=== PATIENT | male | born 1955 | race Caucasian/White ===

== ENCOUNTER 2024-10-25 17:52 | Emergency (ER) | payer MEDICARE, SELFPAY ==
[2024-10-25] VITALS (9 sets, daily range): BP systolic 109–151; BP diastolic 51–73; PULSE 82–105; RESP 16–24; TEMP 36.6–36.8; O2SAT 92–98; BMI 31.8
--- NOTE | 2024-10-25 17:50 | ECG_ITS ---
APPROVED REPORT Exam: Resting ECG HR:102 bpm ECG Measurements Heart Rate 102 AXES SC 180 P 66 QRSd 86 QRS 24 QT 291 T 47 QTc 350 Conclusion SINUS TACHYCARDIA NONSPECIFIC ST & T-WAVE ABNORMALITY ABNORMAL RHYTHM ECG Electronically signed by : ANABELLE SHEPARD, 10/25/2024 20:51:04
--- NOTE | 2024-10-25 18:17 | XR_ITS ---
PROCEDURE INFORMATION: Exam: XR Chest Exam date and time: 10/25/2024 7:52 PM Age: 68 years old Clinical indication: Pain; Chest pressure; Additional info: Chest pain TECHNIQUE: Imaging protocol: Radiologic exam of the chest. Views: 1 view. COMPARISON: CT ABDOMEN PELVIS W CON 10/25/2024 7:48 PM FINDINGS: Lungs: Minimal bibasilar subsegmental atelectasis. No consolidation. Pleural spaces: Unremarkable. No pleural effusion. No pneumothorax. Heart/Mediastinum: Unremarkable. No cardiomegaly. Bones/joints: Unremarkable. IMPRESSION: Basilar subsegmental atelectasis.
[2024-10-25 18:24] LABS: Albumin Level 4.8 g/dl (3.5-5.0); Chloride 100 mmol/L (98-107); Sodium 136 mmol/L (136-145)
[2024-10-25 18:25] LABS: Basophils % 0.6 % (0.1-2.0); Eosinophils % 0.6 % (0.1-12.0); Hematocrit 46.4 % (42.0-52.0); Hemoglobin 15.3 g/dL (14.1-18.0); Immature Granulocytes # 0.02 10^3uL; Immature Granulocytes % 0.4 %; Lymphocytes # 0.4 K/mm3 (0.7-4.5); Lymphocytes % 8.4 % (10-50); Mean Corpuscular Volume 93.9 fl (80-94); Monocytes # 0.1 K/mm3 (0.1-1.0); Neutrophils # 4.7 K/mm3 (1.8-7.8); Nucleated Red Blood Cells # 0 10^3/uL; Nucleated Red Blood Cells % 0 %; Platelet Count 155 K/mm3 (142-424); Potassium 3.8 mmoL/L (3.5-5.1); Red Blood Count 4.94 M/mm3 (4.60-6.20); Red Cell Distribution Width 13.2 % (11.5-17.5); Red Cell Distribution Width-SD 45.6 fL; White Blood Count 5.2 K/mm3 (4.8-10.8)
[2024-10-25 18:26] LABS: MANUAL DIFFERENTIAL MANUAL DIFFERENTIAL (MANUAL DIFF)
[2024-10-25 18:27] LABS: Alanine Aminotransferase 74 U/L (12-78); Albumin/Globulin Ratio 1.8 (1.1-1.8); Alkaline Phosphatase 101 U/L (38-126); Anion Gap 11.8 mEq/L (5-15); Aspartate Amino Transferase 183 U/L (17-59); Bilirubin,Total 1.3 mg/dl (0.2-1.3); Blood Urea Nitrogen 17 mg/dl (9-20); Carbon Dioxide 28 mmol/L (22.0-30.0); Creatinine Clearance Estimated 107 mL/min (50-200); Estimated Glomerular Filt Rate 74 ml/min (>60); GFR (African American) 90 ML/MIN (>60); Globulin 2.7 g/dL (1.3-3.2); Total Protein,Serum 7.5 g/dl (6.3-8.2)
[2024-10-25 18:28] LABS: Calcium 9.3 mg/dl (8.4-10.2); Glucose 141 mg/dl (74-100)
--- NOTE | 2024-10-25 18:32 | ED_ITS ---
<Statement entered by Raffy Chavez MD - 10/25/24 23:16> I was consulted by the JOCE, and we discussed the complexity of the problems being addressed. I approved the treatment and management plan for this patient's care in the emergency department, thus performing a substantive portion of the medical decision making. Raffy Chavez MD Discharge Plan Disposition Patient Disposition: Home, Self-Care Condition: Good Referrals Follow up/Referrals: Ceferino Mohan MD [Staff Physician] - See instructions (Cholelithiasis with biliary colic) Activity Restrictions/Add. Instructions Additional Instructions/Restrictions: I have referred you to a general surgeon. Please call in the morning to make your appointment. If you have any persistent new or worsening signs or symptoms follow-up with your PCP return to the ER as needed. Clinical Impressions Clinical Impression: Cholelithiasis Qualifiers: Cholelithiasis location: gallbladder Cholecystitis presence: without cholecystitis Biliary obstruction: without biliary obstruction Qualified Code(s): K80.20 - Calculus of gallbladder without cholecystitis without obstruction Print Language Print Language: British Discharge ED Provider: Raffy Chavez [facility] <PETE French - Last Filed: 10/25/24 20:24> General Chief Complaint: Chest Pain Stated Complaint: CP Time Seen by Provider: 10/25/24 18:32 Mode of Arrival: Ambulatory Description of Symptoms (Recalled from ER Triage Doc. by RN): pt to the ED with midsternal chest pain since noon. that feels like something is sitting on his chest History of Present Illness HPI narrative: Patient presents for evaluation of epigastric pain. Patient reports that he has had epigastric pain located in the upper right quadrant and epigastrium since lunch today. Patient denies any fever chills shortness of breath hemoptysis hematochezia melena nausea vomiting diarrhea. It does not radiate. Patient states that he has had this before but never this long when he was diagnosed with gallstones . He was referred for cholecystectomy but did not go because I am a chicken . Related Data Allergies Allergy/AdvReac Type Severity Reaction Status Date / Time No Known Allergies Allergy Verified 10/25/24 18:11 PFS <PETE French - Last Filed: 10/25/24 20:24> [facility] Disclaimer: The information contained in this section may have been updated after the patient was seen, as this information can be updated by other users. Social History Smoking Status: Never smoker alcohol intake: never current occupational status: employed Travel in the last 8 weeks?: None <PETE French - Last Filed: 10/25/24 20:24> ROS Obtained: Yes Systems reviewed as appropriate & no additional complaints except as documented Physical Exam <PETE French - Last Filed: 10/25/24 20:24> General General appearance: alert and in no apparent distress Respiratory Respiratory exam: Present normal lung sounds bilaterally Cardiovascular Cardiovascular exam: Present regular rate Neurological Exam Neurological exam: Present alert and oriented X3 HEART Score <PETE French - Last Filed: 10/25/24 20:24> HEART Score HEART Score assessment performed?: Yes History (anamnesis): Slightly suspicious ECG: Non-specific disturbance Age: >65 years Risk factors: 3 or more risk factors Troponin: </= normal limit HEART Score: 5 Critical Care <PETE French Last Filed: 10/25/24 20:24> Critical Care Time Critical Care Time: No Medical Decision Making <PETE French - Last Filed: 10/25/24 20:24> Medical Records Medical records reviewed: Yes I reviewed the patient's medical records. Hans Inquiry Pt receiving controlled substance: No Vital Signs Vital Signs: 10/25/24 17:54 10/25/24 18:30 Temperature 98.3 F Temperature Source Oral Pulse Rate 98 H Pulse Rate [Left Radial] 82 Respiratory Rate 17 22 Blood Pressure 134/73 Blood Pressure [Right Arm] 151/65 H Blood Pressure Mean [Right Arm] 93 Blood Pressure Source [Right Arm] Automatic Cuff Blood Pressure Position [Right Arm] Sitting 02 Sat by Pulse Oximetry 98 93 L Oxygen Delivery Method Room Air Lab Data Lab results reviewed: Yes I reviewed the patient's lab results. Labs: Lab Results 10/25/24 17:58: WBC 5.2, RBC 4.94, Hgb 15.3, Hct 46.4, MCV 93.9, MCH 31.0, MCHC 33.0, RDW 13.2, Plt Count 155, MPV 10.0, Neut % (Auto) 89.0 H, Lymph % (Auto) 8.4 L, [place] % (Auto) 1.0 L, Eos % (Auto) 0.6, Baso % (Auto) 0.6, Neut # (Auto) 4.7, Lymph # (Auto) 0.4 L, [place] # (Auto) 0.1, Eos # (Auto) 0.0, Baso # (Auto) 0.0, Total Counted 100, Neutrophils % (Manual) 83 H, Band Neutrophils % 2.0, Lymphocytes % (Manual) 10, Monocytes % (Manual) 3, Eosinophils % (Manual) 2, Platelet Estimate Normal, RBC Morphology Normal, Sodium 136, Potassium 3.8, Chloride 100, Carbon Dioxide 28, Anion Gap 11.8, BUN 17, Creatinine 1.00, Estimated Creat Clear 107, Estimated GFR 74, Est GFR ( Amer) 90, Glucose 141 H, Calcium 9.3, Total Bilirubin 1.3, AST 183 H, ALT 74, Alkaline Phosphatase 101, Troponin I < 0.01, Total Protein 7.5, Albumin 4.8, Globulin 2.7, Albumin/Globulin Ratio 1.8, Lipase 159 10/25/24 17:58 10/25/24 17:58 Response Orders (Tests/Meds): ED MEDICATIONS Discontinued Medications Generic Name Dose Route Start Last Admin Trade Name Freq PRN Reason Stop Dose Admin Iopamidol 75 ml 10/25/24 19:48 10/25/24 19:48 Iopamidol-370 (76%);100ml Bottle IV 10/25/24 19:49 75 ml ONCE ONE Administration Sodium Chloride 10 ml 10/25/24 19:48 10/25/24 19:48 Sodium Chloride 0.9% 10ml Syr (Rad Only) IV 10/25/24 19:49 10 ml ONCE ONE Administration ORDERS Category Date Time Status CT abdomen pelvis w con Stat Cat Scan 10/25/24 18:37 Taken XR chest portable Stat Exams 10/25/24 18:17 Taken Complete Blood Count Auto Diff Stat Lab 10/25/24 17:58 Completed Comprehensive Metabolic Panel Stat Lab 10/25/24 17:58 Completed Lipase Stat Lab 10/25/24 17:58 Completed Troponin I Q3H Lab 10/25/24 21:30 Ordered Troponin I Q3H Lab 10/26/24 00:30 Ordered Troponin I Stat Lab 10/25/24 17:58 Completed MDM Narrative Medical Decision Narrative: In summary patient is a 68-year-old male who presents to the emergency department for evaluation of right upper quadrant and epigastric pain. Patient is hemodynamically stable the blood pressure 151/65 pulse 82 sinus rhythm on the bedside monitor breathing 17 times a minute satting at 98% on room air upon arrival, afebrile at 98.3. 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 Bowel sounds normal active. Patient states she has no symptoms now as they went away prior to his arrival in the ER. They started around noon today.. Differential diagnosis includes ACS versus cholelithiasis versus cholecystitis versus pancreatitis versus gastritis etc. Initial workup will be conducted with hematologic labs plain, chest x-ray CT scan abdomen pelvis. Initial interventions include Toradol Tylenol Zofran. Initial workup reviewed by me shows that his hematologic labs are nonactionable and my informal interpretation of the CT scan of the pelvis shows gallstones in the neck of the gallbladder without gallbladder wall thickening pericholecystic fluid and no other acute abdominal processes prior to radiology read. Please see final read for formal interpretation. Upon repeat evaluation patient remains asymptomatic and is tolerating oral intake. Given this patient is appropriate for discharge with referral to general surgery for evaluation for cholecystectomy. Patient verbalized understanding and agreement. <Raffy Chavez MD - Last Filed: 10/25/24 19:51> Vital Signs Vital Signs: 10/25/24 17:54 10/25/24 18:30 Temperature 98.3 F Temperature Source Oral Pulse Rate 98 H Pulse Rate [Left Radial] 82 Respiratory Rate 17 22 Blood Pressure 134/73 Blood Pressure [Right Arm] 151/65 H Blood Pressure Mean [Right Arm] 93 Blood Pressure Source [Right Arm] Automatic Cuff Blood Pressure Position [Right Arm] Sitting 02 Sat by Pulse Oximetry 98 93 L Oxygen Delivery Method Room Air Lab Data Labs: Lab Results 10/25/24 17:58: WBC 5.2, RBC 4.94, Hgb 15.3, Hct 46.4, MCV 93.9, MCH 31.0, MCHC 33.0, RDW 13.2, Plt Count 155, MPV 10.0, Neut % (Auto) 89.0 H, Lymph % (Auto) 8.4 L, [place] % (Auto) 1.0 L, Eos % (Auto) 0.6, Baso % (Auto) 0.6, Neut # (Auto) 4.7, Lymph # (Auto) 0.4 L, [place] # (Auto) 0.1, Eos # (Auto) 0.0, Baso # (Auto) 0.0, Total Counted 100, Neutrophils % (Manual) 83 H, Band Neutrophils % 2.0, Lymphocytes % (Manual) 10, Monocytes % (Manual) 3, Eosinophils % (Manual) 2, Platelet Estimate Normal, RBC Morphology Normal, Sodium 136, Potassium 3.8, Chloride 100, Carbon Dioxide 28, Anion Gap 11.8, BUN 17, Creatinine 1.00, Estimated Creat Clear 107, Estimated GFR 74, Est GFR ( Amer) 90, Glucose 141 H, Calcium 9.3, Total Bilirubin 1.3, AST 183 H, ALT 74, Alkaline Phosphatase 101, Troponin I < 0.01, Total Protein 7.5, Albumin 4.8, Globulin 2.7, Albumin/Globulin Ratio 1.8, Lipase 159 Response Orders (Tests/Meds): ED MEDICATIONS Discontinued Medications Generic Name Dose Route Start Last Admin Trade Name Freq PRN Reason Stop Dose Admin Iopamidol 75 ml 10/25/24 19:48 10/25/24 19:48 Iopamidol-370 (76%);100ml Bottle IV 10/25/24 19:49 75 ml ONCE ONE Administration Sodium Chloride 10 ml 10/25/24 19:48 10/25/24 19:48 Sodium Chloride 0.9% 10ml Syr (Rad Only) IV 10/25/24 19:49 10 ml ONCE ONE Administration ORDERS Category Date Time Status CT abdomen pelvis w con Stat Cat Scan 10/25/24 18:37 Taken XR chest portable Stat Exams 10/25/24 18:17 Taken Complete Blood Count Auto Diff Stat Lab 10/25/24 17:58 Completed Comprehensive Metabolic Panel Stat Lab 10/25/24 17:58 Completed Lipase Stat Lab 10/25/24 17:58 Completed Troponin I Q3H Lab 10/25/24 21:30 Ordered Troponin I Q3H Lab 10/26/24 00:30 Ordered Troponin I Stat Lab 10/25/24 17:58 Completed ECG Data Tracing #1: ECG Narrative: Independently interpreted by me rate is 102, rhythm is regular, sinus tachycardia, no ST elevation in anatomical contiguous leads, QTc 350
--- NOTE | 2024-10-25 18:37 | CT_ITS ---
PROCEDURE INFORMATION: Exam: CT Abdomen And Pelvis With Contrast Exam date and time: 10/25/2024 7:48 PM Age: 68 years old Clinical indication: Abdominal pain; Additional info: Epigastric abdominal pain TECHNIQUE: Imaging protocol: Computed tomography of the abdomen and pelvis with contrast. Radiation optimization: All CT scans at this facility use at least one of these dose optimization techniques: automated exposure control; mA and/or kV adjustment per patient size (includes targeted exams where dose is matched to clinical indication); or iterative reconstruction. Contrast material: ISOVUE; Contrast volume: 90 ml; Contrast route: IV; COMPARISON: CT ABDOMEN PELVIS W CON 10/25/2024 7:48 PM FINDINGS: Liver: Mild fatty infiltration. No mass. Gallbladder and biliary ducts: Tiny calculi in gallbladder and cystic duct. No gallbladder wall thickening. No biliary ductal dilatation. Pancreas: Normal. No ductal dilation. Spleen: Normal. No splenomegaly. Adrenal glands: Normal. No mass. Kidneys and ureters: Nonobstructive right renal calculi measuring up to 0.5 cm. 3.9 cm right renal cyst. No left nephroureterolithiasis. Stomach and bowel: Unremarkable. No obstruction. No mucosal thickening. Appendix: No evidence of appendicitis. Intraperitoneal space: Unremarkable. No free air. No significant fluid collection. Vasculature: Atherosclerotic calcification of aortoiliac arteries without aneurysm. Lymph nodes: Unremarkable. No enlarged lymph nodes. Urinary bladder: Unremarkable as visualized. Reproductive: Unremarkable as visualized. Bones/joints: Unremarkable. No acute fracture. Soft tissues: Unremarkable. IMPRESSION: 1. Cholelithiasis and cystic duct calculi without obvious CT evidence for cholecystitis or choledocholithiasis. 2. Nonobstructive right renal calculi. 3. Mild fatty infiltration. COMMENTS: Consistent with the [place] [employer]'s Incidental Findings Committee white paper (J Am Judith Radiol 2018): Any incidental renal lesion less than 1 cm or classified as too small to characterize, or any incidental cystic renal lesion characterized as simple-appearing, is likely benign. No follow-up imaging is recommended for these lesions per consensus recommendations based on imaging criteria.
[2024-10-25 18:51] LABS: Troponin I < 0.01 ng/ml (0.00-0.034)
[2024-10-25 19:10] LABS: Lipase 159 U/L (23-300)
[2024-10-25 19:33] LABS: Eosinophils % 2 % (0-3); Lymphocytes % 10 % (10-50); Monocytes % 3 % (2-9); Neutrophils % 83 % (42-76); Platelet Estimate Normal; RBC Morphology Normal; Total Cells Counted 100
[2024-10-25] MEDS: IOPAMIDOL-370 (76%);100ML BOTTLE 75 ML IV (19:48)
[2024-10-25] MEDS: SODIUM CHLORIDE 0.9% 10ML SYR (RAD ONLY) 10 ML IV (19:48)
== END 2024-10-25 22:02 | disposition home or self-care (01) ==
PROVIDERS: Physician Assistant; Emergency Provider Emergency Medicine; PCP Family Medicine
DX: R10.13 Epigastric pain (principal); K80.20 Calculus of gallbladder without cholecystitis without obstruction; R07.89 Other chest pain; R00.0 Tachycardia, unspecified
CPT/HCPCS: 71045; 74177; 80053; 83690; 84484; 85007; 85025; 85027; 93005; 99285; Q9967

== ENCOUNTER 2024-11-09 09:41 | Outpatient (CLI) | payer MEDICARE, SELFPAY ==
--- NOTE | 2024-11-09 10:38 | ECG_ITS ---
APPROVED REPORT Exam: Resting ECG HR:72 bpm ECG Measurements Heart Rate 72 AXES OH 152 P 50 QRSd 92 QRS 6 QT 380 T 8 QTc 405 Conclusion SINUS RHYTHM NORMAL ECG UNCONFIRMED REPORT Electronically signed by : Leonel Bowman MD 11/10/2024 07:31:05
[2024-11-09 10:42] VITALS: BMI 31.8
--- NOTE | 2024-11-09 10:43 | PC.NURSE ---
pt unaware of medications taking, he stated he will have his daughter bring a list the DOS
== END 2024-11-09 23:59 | disposition home or self-care (01) ==
LOC: PREOP 09:42
PROVIDERS: PCP Family Medicine; Visit Provider Surgery
DX: Z01.810 Encounter for preprocedural cardiovascular examination (principal)
CPT/HCPCS: 93005

== ENCOUNTER 2024-11-18 06:02 | Day surgery (SDC) | payer MEDICARE, SELFPAY ==
[2024-11-09 10:46] VITALS: BMI 31.1
--- NOTE | 2024-11-09 10:46 | SUR.PREOP ---
pt is having his daughter bring his med list with them the DOS, pt is unaware of medication he is taking
[2024-11-18] VITALS (15 sets, daily range): BP systolic 118–184; BP diastolic 58–111; PULSE 73–104; RESP 14–18; TEMP 36.2–43; O2SAT 88–98
[2024-11-18] MEDS: 0.9 % SODIUM CHLORIDE 1000ML 1,000 ML 25 ML IV (06:49)
[2024-11-18 06:54] LABS: POC Glucose,Bedside 143 (70-110)
--- NOTE | 2024-11-18 07:07 | P.PNANES_ITS ---
[facility] Disclaimer: The information contained in this section may have been updated after the patient was seen, as this information can be updated by other users. Medical History Kidney stone Diabetes mellitus, type 2 Hyperlipidemia Surgical History History of colonoscopy History of facial surgery History of ear surgery Family History Other Family history of myocardial infarction Social History (Updated 11/18/24 @ 06:48 by Ese Murcia RN) Smoking Status: Current every day smoker alcohol intake: never substance use type: denies use current occupational status: employed Travel in the last 8 weeks?: None [facility] Anesthesia Checklist Patient Identification Patient Identification: Arm Band and Family Structural Data Admitted From: Home Planned Operative Procedure/s: Lap Franci Consent for Planned Operative Procedure(s) Verified: Yes Verified Documents: Surgical Consent, History and Physical and Cardiac Clearance NPO Status Verified Time NPO: 00:00 Additional verifications Patient : No Anesthesia Reactions: No Hx Blood Transfusions: No Blood Transfusion Reaction: No Cephalosporin Allergy: No Previous Colonoscopy: No Airway Assessment Mallampati Score:: Class II C-Spine Mobility Assessed: Yes TMJ Mobility Assessed: Yes Dentition: Poor Dentition Neurological Assessment Level of Consciousness: Awake, Alert, Appropriate and Follows Commands Hx Seizures: No Numbness or tingling in extremities: No Anesthesia Plan Anesthesia Risk discussed: Yes ASA Class: II Anesthesia Type: General Preoperative Comments Pre-Operative Comments: Current cough. Borderline DM. Smoker.
[2024-11-18] MEDS: CEFAZOLIN 2GM VIAL 2 GM (07:55)
[2024-11-18] MEDS: LIDOCAINE 1% 20ML MDV 20 ML (07:57)
--- NOTE | 2024-11-18 09:03 | EXP.OP.NOTE ---
Date of procedure: 11/18/24 Pre-op Diagnosis:: Symptomatic cholelithiasis Post-op Diagnosis:: Chronic calculus cholecystitis Procedure performed:: Laparoscopic cholecystectomy Surgeon:: Mian Neri MD Anesthesia: GETJesse Estimated blood loss (mL): 15 Operative findings:: Significant gallbladder wall thickening Severe pericholecystic fat stranding Dome down approach utilized secondary to above findings Operative note:: After informed consent was obtained, the patient was taken to the operating room and placed in the supine position. General anesthesia was induced and the abdomen was prepped and draped in a sterile fashion. After infiltration with local anesthetic an supraumbilical incision was made. A Veress needle was placed in position. The abdomen was insufflated. A 5 mm optical trocar was placed in position. Under direct visualization, a 12 mm trocar was placed in the subxiphoid position and 2 additional 5 mm trocars were placed in the right upper quadrant. The gallbladder was elevated up and over the liver margin. The tissue around the cystic duct was carefully dissected. Severe pericholecystic fat stranding and significant wall thickening noted. The decision was made to proceed with a dome down approach . A window was made posterior to the gallbladder just distal to the thickened/enlarged infundibulum. Harmonic rudolph were utilized to dissect the gallbladder away from the liver margin. Endoloops (x 2) were placed at the infundibulum. The gallbladder was transected at the infundibulum with harmonic rudolph. The gallbladder was placed in a retrieval bag and removed through the subxiphoid trocar site. The right upper quadrant was thoroughly irrigated. No active bleeding or bile leak was noted. Fascia at the subxiphoid trocar site was reapproximated utilizing 0 Ethibond. The remaining trocars were removed. All wounds were irrigated and skin was closed with 4-0 Monocryl in a subcuticular fashion. Steri-Strips were applied. The patient's anesthetic agents were reversed and extubation was completed prior to transfer to recovery in stable condition. Condition: stable Disposition: PACU Specimens:: Gallbladder Complications:: No immediate
--- NOTE | 2024-11-18 09:19 | P.PNANES_ITS ---
[facility] Anesthesia Record Part I Anesthesia Record I Intake, IV Amount: 850 Hydration: Adequate Estimated blood loss (mL): 15 Urine output (mL): 0 Blood Products used (#): none Blood Pressure: 184/95 SaO2: 93 Pulse Rate: 97 Airway Patency: Patent Respiratory Rate: 14 Temperature: 98 F Patient is:: Drowsy and Stable Stable to PACU at:: 09:11
[2024-11-18] MEDS: MORPHINE 2MG/ML SYRINGE 2 MG IV ×2 (09:30→09:40)
[2024-11-18] MEDS: ALBUTEROL 0.083% 2.5 MG/3 ML NEB IH (09:50)
[2024-11-18] MEDS: KETOROLAC 30MG/ML VIAL 30 MG IV (10:10)
--- NOTE | 2024-11-18 10:20 | SUR.PHASEI ---
0945- called Robbin Riley CRNA to ask if patient could have a neb treatment. Patient hanging out around 90% on 2LNC, expiratory wheezes noted, hx of smoking 1PPD for many years according to patient. Robbin Riley CRNA placing order for neb treatment at this time. 48- RT called for neb treatment. 50- Jesse Mcneill TOGGLE PRESS OPERATOR at bedside administering neb treatment. 58- neb treatment done, expiratory wheezes still noted, minimal improvements to oxygen status.
--- NOTE | 2024-11-18 12:48 | P.PNANES_ITS ---
[facility] Anesthesia Record Part II Anesthesia Record Part II Discharge Time: 10:11 Destination: Surgical Day Care (OP Surgery) PACU nurse assessment reviewed?: Yes Patient Condition:: Good Anesthesia Complications:: None Swallowing reflex intact?: Yes Airway Patency: Patent Cyanosis?: No Blood Pressure: 138/75 SaO2: 92 Respiratory Rate: 16 Pulse Rate: 104 Temperature: 97.9 F Mental Status: Alert & Oriented Pain level:: 6 Nausea and/or vomitting:: None Intake, IV Amount: 0 Hydration: Adequate
[2024-11-22 15:09] LABS: POC Glucose,Bedside 165 (70-110)
== END 2024-11-18 10:54 | disposition home or self-care (01) ==
PROVIDERS: PCP Family Medicine; Visit Provider Surgery
PROC: 0FT44ZZ Resection of Gallbladder, Percutaneous Endoscopic Approach (ICD-10-PCS; CPT 47562; principal; 2024-11-18 07:30)
DX: K80.10 Calculus of gallbladder with chronic cholecystitis without obstruction (principal); E11.9 Type 2 diabetes mellitus without complications; E78.5 Hyperlipidemia, unspecified; Z79.82 Long term (current) use of aspirin; Z79.899 Other long term (current) drug therapy; Z79.84 Long term (current) use of oral hypoglycemic drugs
CPT/HCPCS: 47562; 82962; 88304; 94640; 96374; J0690; J1100; J1885; J2250; J2270; J2405; J3010; J7030